=== PATIENT | female | born 1995 | race Caucasian/White ===

== ENCOUNTER → 2017-03-28 | Outpatient (CLI) | payer MEDICAID ==
[~2017-03-28] MED LIST: FERROUS SULFAT325 M2 PO; IRON TABLETS325 MG PO; MOTRIN 400MG.400 MG PO; MOTRIN400 MG PO; PERCOCET 5/3251 EACH PO; PRENATAL PLUS1 TA1 PO
--- NOTE | 2017-03-28 16:26 | RADIOLOGY REPORT PS360 ---
US TRANSVAGINAL PREG HISTORY: OB US FOR DATES ORDERING PHYSICIAN: Taiwo Riddle MD PATIENT AGE: 21 years COMPARISON: None FINDINGS: There is a twin gestation present with 2 sacs and 2 embryos and 2 separate heartbeats. Fetus A has a crown-rump length of 3.33 cm correlating to gestational age of 10 weeks and 2 days. Yolk sac is present. The amnion and chorion have not yet fused. heart tones are present 170 bpm. Fetus B has a crown-rump length of 3.37 cm correlating to gestational age of 10 weeks 2 days. heart tones are present at 1 49 bpm. Yolk sac is noted in the amnion and chorion have not yet fused. Unremarkable adnexa. IMPRESSION: Live twin gestation at 10 weeks 2 days
== END ==
LOC: RAD 03-27 10:45
DX: O26.841 Uterine size-date discrepancy, first trimester (principal)